=== PATIENT | female | born 1990 | race Caucasian/White ===

== ENCOUNTER 2018-05-09 08:18 | Emergency (ER) | payer BC ==
[~2018-05-09] VITALS: Ht 162.6 cm; Wt 55.3 kg
[~2018-05-09 08:18] MED LIST: BSP10T PO; DAPS25TA2 PO; FAMO20TA5 PO; METO-333 PO; MIRT15TA6 PO; PRD20T PO; PREN-53 PO; SULF1TAB38 PO; SUMA50TA2 PO; TRAM50TA2 PO
--- OUTSIDE RECORDS SUMMARY | 2018-05-09 08:22 | XMS REPORT | Continuity of Care Document ---
Author Author [facility] Organization [facility] Address Unknown Phone Unavailable Care Team Providers Care Electronics Supervisor Name Role Phone NO, LOCAL PHYSICIAN PCP Unavailable Insurance Providers Payer Name Policy Number Subscriber Name Relationship Unknown Advance Directives Directive Response Recorded Date/Time Advance Directives No 11/02/15 4:41pm Resuscitation Status Full Code 11/02/15 4:41pm Chief Complaint and Reason for Visit Chief Complaint Head/Cervical Problems Reason for Visit Migraine Problems Active Problems Medical Problem Onset Date Status Migraine Unknown Acute Medications Current Home Medications Medication Dose Units Route Directions Days/Qty Instructions Start Date [id number]/Iron Fumarate/Fa/Dss 1 Each 1 Each Oral Daily 11/02/15 Sumatriptan Succinate 50 Mg 50 Mg Oral Once as needed for Headache 8 Take 1 tablet at onset of headache. May repeat 1 only after 2 hours if not relieved. 11/02/15 Social History Social History Problem Response Recorded Date/Time Alcohol Use Denies Use 11/02/2015 4:41pm Recreational Drug Use No 11/02/2015 4:41pm Recent Foreign Travel No 11/02/2015 4:20pm Recent Infectious Disease Exposure No 11/02/2015 4:20pm Smoking Status Never a Smoker 11/02/2015 4:41pm Query Response Start Date Stop Date Smoking Status Never a Smoker Hospital Discharge Instructions No hospital discharge instructions. Plan of Care Discharge Date 11/02/15 6:53pm Disposition 01 HOME, SELF-CARE Condition at Discharge Improved Instructions/Education Provided Migraine Headache (ED) Prescriptions See Medication Section Referrals NO,LOCAL PHYSICIAN - Primary Care Physician Additional Instructions/Education All discharge instructions reviewed with patient and/or family. Voiced understanding. It is imperative that you follow-up with her doctor in your hometown for continued care and follow-up. You may benefit from preventative Functional Status Query Response Date Recorded Patient Orientation Person Place Time Situation November 02, 2015 5:20pm Comprehension Ability Understands Concepts November 02, 2015 5:20pm Allergies, Adverse Reactions, Alerts No known allergies. Immunizations No immunization records. Vital Signs Acute Vital Signs Vital Response Date/Time Temperature (Fahrenheit) 98 degrees F (97.6 - 99.5) 11/02/2015 4:20pm Temperature (Calculated Celsius) 36.6696 degrees C (36.4 - 37.5) 11/02/2015 4 :20pm Pulse Rate (adult) 77 bpm (60 - 90) 11/02/2015 4:20pm Respiratory Rate 18 bpm (12 - 24) 11/02/2015 4:20pm O2 Sat by Pulse Oximetry 98 % (88 - 100) 11/02/2015 4:20pm Blood Pressure 128/61 mm Hg 11/02/2015 4:20pm Blood Pressure Mean 83 mm Hg 11/02/2015 4:20pm Pain Pain Intensity 6 11/02/2015 6:21pm Height (Feet) 5 feet 11/02/2015 4:20pm Height (Inches) 4 inches 11/02/2015 4:20pm Height (Calculated Centimeters) 162.549887 cm 11/02/2015 4:20pm Weight (Pounds) 115 pounds 11/02/2015 4:20pm Weight (Calculated Kilograms) 52.059630 kilograms 11/02/2015 4:20pm Height 5 ft 4 in Weight 115 lb Body Mass Index 19.7 kg/m^2 Results Laboratory Results Test Name Result Units Flags Reference Collection Date/Time Result Date/ Time Comments White Blood Count 9.6 10^3/uL 4.3-11.0 11/02/2015 5:15pm 11/02/2015 5: 32pm Red Blood Count 4.50 10^6/uL 4.35-5.85 11/02/2015 5:15pm 11/02/2015 5: 32pm Hemoglobin 13.2 G/DL 11.5-16.0 11/02/2015 5:15pm 11/02/2015 5:32pm Hematocrit 39 % 35-52 11/02/2015 5:1511/02/2015 5:32pm Mean Corpuscular Volume 87 FL 80-99 11/02/2015 5:1511/02/2015 5: 32pm Mean Corpuscular Hemoglobin 29 PG 25-34 11/02/2015 5:1511/02/2015 5: 32pm Mean Corpuscular Hemoglobin Concent 34 G/DL 32-36 11/02/2015 5:1511/2015 5:32pm Red Cell Distribution Width 13.1 % 10.0-14.5 11/02/2015 5:152015 5:32pm Platelet Count 300 10^3/uL 130-400 11/02/2015 5:1511/02/2015 5:32pm Mean Platelet Volume 10.1 FL 7.4-10.4 11/02/2015 5:1511/02/2015 5: 32pm Neutrophils (%) (Auto) 78 % H 42-75 11/02/2015 5:1511/02/2015 5:32pm Lymphocytes (%) (Auto) 13 % 12-44 11/02/2015 5:1511/02/2015 5:32pm Monocytes (%) (Auto) 8 % 0-12 11/02/2015 5:1511/02/2015 5:32pm Eosinophils (%) (Auto) 1 % 0-10 11/02/2015 5:1511/02/2015 5:32pm Basophils (%) (Auto) 0 % 0-10 11/02/2015 5:11/02/2015 5:32pm Neutrophils # (Auto) 7.5 X 10^3 1.8-7.8 11/02/2015 5:1511/02/2015 5: 32pm Lymphocytes # (Auto) 1.3 X 10^3 1.0-4.0 11/02/2015 5:1511/02/2015 5: 32pm Monocytes # (Auto) 0.8 X 10^3 0.0-1.0 11/02/2015 5:1511/02/2015 5: 32pm Eosinophils # (Auto) 0.1 10^3/uL 0.0-0.3 11/02/2015 5:1511/02/2015 5 :32pm Basophils # (Auto) 0.0 10^3/uL 0.0-0.1 11/02/2015 5:15pm 11/02/2015 5: 32pm Sodium Level 137 MMOL/L 135-145 11/02/2015 5:11/02/2015 5:51pm Potassium Level 3.6 MMOL/L 3.6-5.0 11/02/2015 5:15pm 11/02/2015 5:51pm Chloride Level 102 MMOL/L 98-107 11/02/2015 5:1511/02/2015 5:51pm Carbon Dioxide Level 25 MMOL/L 21-32 11/02/2015 5:15pm 11/02/2015 5: 51pm Anion Gap 10 MMOL/L 5-14 11/02/2015 5:11/02/2015 5:51pm Blood Urea Nitrogen 12 MG/DL 7-18 11/02/2015 5:15pm 11/02/2015 5:51pm Creatinine 0.68 MG/DL 0.60-1.30 11/02/2015 5:11/02/2015 5:51pm BUN/Creatinine Ratio 18 11/02/2015 5:15pm 11/02/2015 5:51pm Estimat Glomerular Filtration Rate > 60 11/02/2015 5:2015 5:51pm GFR INTERPRETIVE DATA UNITS FOR ESTIMATED GFR (eGFR): mL/min/1.73 M2 REFERENCE RANGE FOR ESTIMATED GFR (eGFR) eGFR NORMAL eGFR >60 MODERATELY DECREASED eGFR 30-59 SEVERLY DECREASED eGFR 15-29 KIDNEY FAILURE <15 (OR DIALYSIS) Glucose Level 99 MG/DL 70-105 11/02/2015 5:11/02/2015 5:51pm Calcium Level 9.0 MG/DL 8.5-10.1 11/02/2015 5:11/02/2015 5:51pm Total Bilirubin 0.7 MG/DL 0.1-1.0 11/02/2015 5:1511/02/2015 5:51pm Alkaline Phosphatase 51 U/L 40-136 11/02/2015 5:15pm 11/02/2015 5:51pm Aspartate Amino Transf (AST/SGOT) 25 U/L 5-34 11/02/2015 5:2015 5:51pm Alanine Aminotransferase (ALT/SGPT) 26 U/L 0-55 11/02/2015 5:15pm 11/01 5:51pm Total Protein 7.3 G/DL 6.4-8.2 11/02/2015 5:15pm 11/02/2015 5:51pm Albumin 4.5 G/DL 3.2-4.5 11/02/2015 5:15pm 11/02/2015 5:51pm Procedures No known history of procedures. Encounters Encounter Location Arrival/Admit Date Discharge/Depart Date Attending Provider Departed Emergency Room [facility] 11/02/15 3:08pm 11/01 6:53pm DOC BLANKENSHIP MD Recent Diagnosis
--- OUTSIDE RECORDS SUMMARY | 2018-05-09 08:22 | XMS REPORT | Continuity of Care Document ---
Author Author [facility] Organization [facility] Address Unknown Phone Unavailable Allergies Active Description Code Type Severity Reaction Onset Reported/Identified Relationship to Patient Clinical Status Yes No Known Drug Allergies [id number] Drug Allergy Unknown N/A 11/16/2011 Yes No Known Drug Allergies [id number] Drug Allergy Unknown N/A 11/02/2015 Medications There is no data. Problems Date Dx Coded Attending Type Code Diagnosis Diagnosed By 11/02/2015 DOC BLANKENSHIP MD Ot G43.909 MIGRAINE, UNSP, NOT INTRACTABLE, WITHOUT 11/02/2015 Ot G43.909 MIGRAINE, UNSP, NOT INTRACTABLE, WITHOUT 11/04/2015 DOC BLANKENSHIP MD Ot G43.909 MIGRAINE, UNSP, NOT INTRACTABLE, WITHOUT Procedures There is no data. Results There is no data. Encounters ACCT No. Visit Date/Time Discharge Status Pt. Type Provider Facility Loc./Unit Complaint [id number] 11/02/2015 15:08:00 11/02/2015 18:53:00 DIS Emergency DOC BLANKENSHIP MD [facility] ER [id number] 05/09/2018 08:19:00 ACT Emergency BARBARA GARCÍA MD [facility] ER N/V/D,PASSING OUT [id number] 11/02/2015 15:08:00 Document Registration
[2018-05-09] MEDS ORDERED: LACTATED RINGERS 1,000 ML IV ONE ×2 (08:42→08:43)
[2018-05-09 08:43] LABS: BASOPHILS % (AUTO) 0 % (0-10); EOSINOPHILS % (AUTO) 0 % (0-10); HEMATOCRIT 47 % (35-52); HEMOGLOBIN 15.8 G/DL (11.5-16.0); LYMPHOCYTES # (AUTO) 0.3 X 10^3 (1.0-4.0); LYMPHOCYTES % (AUTO) 3 % (12-44); MEAN CORPUSCULAR HEMOGLOBIN 29 PG (25-34); MEAN CORPUSCULAR HGB CONC 33 G/DL (32-36); MEAN CORPUSCULAR VOLUME 88 FL (80-99); MEAN PLATELET VOLUME 9.8 FL (7.4-10.4); MONOCYTES # (AUTO) 0.5 X 10^3 (0.0-1.0); MONOCYTES % (AUTO) 4 % (0-12); NEUTROPHILS # (AUTO) 12.1 X 10^3 (1.8-7.8); NEUTROPHILS % (AUTO) 93 % (42-75); PLATELET COUNT 291 10^3/uL (130-400); RED BLOOD COUNT 5.38 10^6/uL (4.35-5.85); RED CELL DISTRIBUTION WIDTH 13.3 % (10.0-14.5); WHITE BLOOD COUNT 12.9 10^3/uL (4.3-11.0)
--- NOTE | 2018-05-09 08:43 | ED GI ---
General Stated Complaint: N/V/D,PASSING OUT Source of Information: Patient, Family ([id number]) Exam Limitations: No Limitations History of Present Illness Date Seen by Provider: May 09, 2018 Time Seen by Provider: 08:31 Initial Comments Patient presents to ER by private conveyance from home with chief complaint that for the past 1 day she's been having nausea vomiting diarrhea. Her had similar symptoms a day before her period she's had a low-grade temperature of 99.9. She's not had anything for the diarrhea or the nausea. She said she thinks she passed out while she was on the toilet and vomiting at same time and pitched forward. Her poxoar-rb-kki reports that her caught her and put her over on her side because she was vomiting. She's having no cough or shortness of breath or wheezing. They are concerned because she passed out. 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 She is known to a primary care doctor and neurologist in [place], [place]. She also has a neurosurgeon in [place] who is working her up for potential surgical intervention. She has a history of hypothyroidism and scoliosis that has been corrected surgically. She says she also gets positional headaches and is better when she lays flat. She has not taken anything for the pain. Allergies and Home Medications Allergies Coded Allergies: No Known Drug Allergies (Unverified , 11/16/11) Home Medications Dapsone 25 Mg Tablet, 2 EACH PO BID Prescribed by: BEATRIS DUARTE on 09/26/12 151 Famotidine 20 Mg Tablet, 1 EACH PO BID PRN Prescribed by: BEATRIS DUARTE on 09/26/12 154 Ehb284/Iron Fumarate/FA/Dss 1 Each Tablet, 1 EACH PO DAILY, (Reported) Prednisone 20 Mg Tab, 40 MG PO DAILY Prescribed by: BEATRIS DUARTE on 09/26/12 1549 Sumatriptan Succinate 50 Mg Tablet, 50 MG PO ONCE PRN for HEADACHE Take 1 tablet at onset of headache. May repeat 1 only after 2 hours if not relieved. Prescribed by: DOC BLANKENSHIP on 11/02/15 1850 Trimethoprim/Sulfamethoxazole 1 Ea Tablet, 1 EA PO BID Prescribed by: BEATRIS DUARTE on 09/26/12 1512 Patient Home Medication List Home Medication List Reviewed: Yes Review of Systems Review of Systems Constitutional: chills, fever EENTM: No Blurred Vision, No Double Vision Respiratory: Denies Cough, Denies Shortness of Air Cardiovascular: Denies Chest Pain, Denies Lightheadedness Gastrointestinal: See HPI; Denies Abdomen Distended, Denies Abdominal Pain, Denies Constipated; Diarrhea, Nausea, Poor Fluid Intake, Vomiting Genitourinary: Denies Burning, Denies Discharge Musculoskeletal: No back pain, No joint pain Skin: No pruritus, No rash Psychiatric/Neurological: Headache; Denies Numbness, Denies Paresthesia, Denies Seizure Past Zoimygf-Kjfsea-Hklbyl Hx Patient Social History Alcohol Use: Denies Use Recreational Drug Use: No Smoking Status: Never a Smoker Recent Foreign Travel: No Contact w/Someone Who Travel: No Immunizations Up To Date Tetanus Booster (TDap): Less than 5yrs Past Medical History Reproductive Disorders: No Sexually Transmitted Disease: No HIV/AIDS: No Family Medical History No Pertinent Family Hx Physical Exam Vital Signs Vital Signs - First Documented 05/09/18 08:54 Temp 98.3 Pulse 99 Resp 20 B/P (MAP) 101/52 (68) Pulse Ox 99 Capillary Refill : Height/Weight/BMI Height: '" Weight: lbs. oz. kg; BMI Method:Stated General Appearance: WD/WN, no apparent distress HEENT: PERRL/EOMI, normal ENT inspection, TMs normal, pharynx normal, other ( atraumatic head without Garcia sign, raccoon eyes or hemotympanum.) Neck: non-tender, full range of motion, supple, normal inspection Respiratory: chest non-tender, lungs clear, normal breath sounds, no respiratory distress, no accessory muscle use Cardiovascular: normal peripheral pulses, regular rate, rhythm, no edema Peripheral Pulses: 2+ Radial Pulses (R), 2+ Radial Pulses (L) Gastrointestinal: normal bowel sounds, non tender, soft, no organomegaly Extremities: normal range of motion, non-tender, normal capillary refill Neurologic/Psychiatric: alert, normal mood/affect, oriented x 3 Skin: normal color, warm/dry Progress/Results/Core Measures Results/Orders Lab Results Laboratory Tests Test 05/09/18 08:33 05/09/18 08:35 05/09/18 10:11 Range/Units White Blood Count 12.9 H 4.3-11.0 10^3/uL Red Blood Count 5.38 4.35-5.85 10^6/uL Hemoglobin 15.8 11.5-16.0 G/DL Hematocrit 47 35-52 % Mean Corpuscular Volume 88 80-99 FL Mean Corpuscular Hemoglobin 29 25-34 PG Mean Corpuscular Hemoglobin Concent 33 32-36 G/DL Red Cell Distribution Width 13.3 10.0-14.5 % Platelet Count 291 130-400 10^3/uL Mean Platelet Volume 9.8 7.4-10.4 FL Neutrophils (%) (Auto) 93 H 42-75 % Lymphocytes (%) (Auto) 3 L 12-44 % Monocytes (%) (Auto) 4 0-12 % Eosinophils (%) (Auto) 0 0-10 % Basophils (%) (Auto) 0 0-10 % Neutrophils # (Auto) 12.1 H 1.8-7.8 X 10^3 Lymphocytes # (Auto) 0.3 L 1.0-4.0 X 10^3 Monocytes # (Auto) 0.5 0.0-1.0 X 10^3 Eosinophils # (Auto) 0.0 0.0-0.3 10^3/uL Basophils # (Auto) 0.0 0.0-0.1 10^3/uL Neutrophils % (Manual) 84 % Lymphocytes % (Manual) 2 % Monocytes % (Manual) 2 % Band Neutrophils 12 % Blood Morphology Comment NORMAL Sodium Level 139 135-145 MMOL/L Potassium Level 4.0 3.6-5.0 MMOL/L Chloride Level 105 98-107 MMOL/L Carbon Dioxide Level 18 L 21-32 MMOL/L Anion Gap 16 H 5-14 MMOL/L Blood Urea Nitrogen 16 7-18 MG/DL Creatinine 0.85 0.60-1.30 MG/DL Estimat Glomerular Filtration Rate > 60 BUN/Creatinine Ratio 19 Glucose Level 134 H 70-105 MG/DL Calcium Level 10.1 8.5-10.1 MG/DL Corrected Calcium 8.5-10.1 MG/DL Magnesium Level 2.0 1.8-2.4 MG/DL Total Bilirubin 0.9 0.1-1.0 MG/DL Aspartate Amino Transf (AST/SGOT) 15 5-34 U/L Alanine Aminotransferase (ALT/SGPT) 11 0-55 U/L Alkaline Phosphatase 58 40-136 U/L Total Protein 8.9 H 6.4-8.2 GM/DL Albumin 5.0 H 3.2-4.5 GM/DL Lipase 14 8-78 U/L Serum Test, Qualitative NEGATIVE NEGATIVE Urine Color YELLOW Urine Clarity CLEAR Urine pH 6 5-9 Urine Specific [place] 1.020 1.016-1.022 Urine Protein 1+ H NEGATIVE Urine Glucose (UA) NEGATIVE NEGATIVE Urine Ketones 1+ H NEGATIVE Urine Nitrite NEGATIVE NEGATIVE Urine Bilirubin NEGATIVE NEGATIVE Urine Urobilinogen NORMAL NORMAL MG/DL Urine Leukocyte Esterase 3+ H NEGATIVE Urine RBC (Auto) NEGATIVE NEGATIVE Urine RBC NONE /HPF Urine WBC 10-25 H /HPF Urine Squamous Epithelial Cells 20-30 /HPF Urine Crystals NONE /LPF Urine Bacteria MODERATE H /HPF Urine Casts NONE /LPF Urine Mucus NEGATIVE /LPF Urine Culture Indicated YES My Orders Orders - BARBARA GARCÍA Ua Culture If Indicated (05/09/18 08:24) Ondansetron Injection (Zofran Injectio (05/09/18 08:45) Cbc With Automated Diff (05/09/18 08:35) Comprehensive Metabolic Panel (05/09/18 08:35) Hcg,Qualitative Serum (05/09/18 08:35) Lipase (05/09/18 08:35) Magnesium (05/09/18 08:35) Saline Lock/Iv-Start (05/09/18 08:43) Lactated Ringers (Lr 1000 Ml Iv Solution (05/09/18 08:43) Lactated Ringers (Lr 1000 Ml Iv Solution (05/09/18 08:42) Manual Differential (05/09/18 08:33) Ketorolac Injection (Toradol Injection) (05/09/18 09:00) Urine Culture (05/09/18 10:11) Medications Given in ED Current Medications Medications Dose Ordered Sig/Cristo Route Start Time Stop Time Status Last Admin Dose Admin Ketorolac Tromethamine 30 mg ONCE ONCE IVP 05/09/18 09:00 05/09/18 09:01 DC 05/09/18 09:25 30 MG Lactated Ringer's 1,000 ml @ 0 mls/hr Q0M ONCE IV 05/09/18 08:43 05/09/18 08:44 DC 05/09/18 08:45 0 MLS/HR Ondansetron HCl 4 mg ONCE ONCE IVP 05/09/18 08:45 05/09/18 08:46 DC 05/09/18 08:45 4 MG Vital Signs/I&O 05/09/18 08:54 Temp 98.3 Pulse 99 Resp 20 B/P (MAP) 101/52 (68) Pulse Ox 99 Progress Progress Note #1: Time: 08:44 Progress Note The patient laid herself down in the lobby on the floor. She states she did this because laying flat is better for her headache because of her access CSF production. We will give her some Toradol for her headache, a liter of fluids to start and some Zofran for her nausea. We'll check some labs to look at her electrolytes, kidney function, fluid base status as well as urine. We have offered to do a CT scan versus observation and she says that her head is fine and we agree that it would be reasonable to just let her family observe her for the next 12 hours. Sounds like she is having a bad case of probably viral gastroenteritis with possible dehydration or fluid electrolyte derangement. She says she does not have a history of syncopal episodes. Progress Note #2: Time: 11:30 Progress Note Patient's feeling much better. Her going to go ahead and put her on Keflex to treat a potential UTI and give her Zofran. Departure Impression Primary Impression: Urinary tract infection Qualified Codes: N30.00 - Acute cystitis without hematuria Additional Impressions: Gastroenteritis and colitis, viral Mild dehydration Disposition: 01 HOME, SELF-CARE Condition: Improved Departure-Patient Inst. Decision time for Depature: 11:31 Referrals: NO,LOCAL PHYSICIAN (PCP/Family) Primary Care Physician Patient Instructions: Urinary Tract Infection, Adult (DC) Add. Discharge Instructions: Start with some clear liquid diet and work your way up as you tolerated. If you have nausea take one tablet of Zofran every 6 hours as needed. Starting the Keflex one capsule twice a day with some food. If you have other or new or worrisome symptoms he should follow-up with your primary care doctor or you may return to the ER as needed. Scripts Cephalexin (Cephalexin) 500 Mg Tablet 500 MG PO BID, #14 TAB 0 Refills Prov: BARBARA GARCÍA 05/09/18 Work/School Note: Work Release Form Date Seen in the Emergency Department: May 09, 2018 Return to Work: May 12, 2018 Restrictions: No Restrictions BARBARA GARCÍA May 09, 2018 08:42
[2018-05-09] MEDS ORDERED: ONDANSETRON 4 MG/2 ML (SDV) Z0FRAN IVP ONE (08:45)
[2018-05-09 09:00] LABS: ALANINE AMINOTRANSFERASE 11 U/L (0-55); ALKALINE PHOSPHATASE 58 U/L (40-136); BILIRUBIN,TOTAL 0.9 MG/DL (0.1-1.0); BUN/CREATININE RATIO 19; CALCIUM 10.1 MG/DL (8.5-10.1); CARBON DIOXIDE 18 MMOL/L (21-32); CHLORIDE 105 MMOL/L (98-107); CREATININE SERUM 0.85 MG/DL (0.60-1.30); GFR ESTIMATED > 60; GLUCOSE 134 MG/DL (70-105); LIPASE 14 U/L (8-78); SODIUM 139 MMOL/L (135-145); TOTAL PROTEIN 8.9 GM/DL (6.4-8.2)
[2018-05-09] MEDS ORDERED: KETOROLAC 30 MG/ML VIAL IVP ONE (09:00)
[2018-05-09 09:45] LABS: BILIRUBIN,URINE NEGATIVE (NEGATIVE); CLARITY,URINE CLEAR; COLOR,URINE YELLOW; GLUCOSE, URINE (UA) NEGATIVE (NEGATIVE); NITRITE,URINE NEGATIVE (NEGATIVE); PH,URINE 6 (5-9); PROTEIN,URINE 1+ (NEGATIVE); UROBILINOGEN,URINE NORMAL (NORMAL)
[2018-05-09 10:18] LABS: KETONES,URINE 1+ (NEGATIVE); LEUKOCYTE ESTERASE ,URINE 3+ (NEGATIVE)
[2018-05-09 10:23] LABS: BAND NEUTROPHILS 12 %; LYMPHOCYTES % (MANUAL) 2 %; MONOCYTES % (MANUAL) 2 %; NEUTROPHILS % (MANUAL) 84 %; RBC MORPH NORMAL
[2018-05-09 10:44] LABS: BACTERIA,URINE MODERATE /HPF; SQUAMOUS EPITHELIAL CELL,UR 20-30 /HPF
[2018-05-09] MEDS ORDERED: CEPH500T PO (11:34)
[2018-05-09] MEDS ORDERED: ONDA4TAB11 PO (11:36)
[2018-05-09 11:47] VITALS: BP 102/61
== END 2018-05-09 11:47 | disposition home or self-care (01) ==
LOC: EDUNIT# 08:18 → ER 08:19
DX: N39.0 Urinary tract infection, site not specified (principal); A08.4 Viral intestinal infection, unspecified; E86.0 Dehydration; K21.9 Gastro-esophageal reflux disease without esophagitis; E03.9 Hypothyroidism, unspecified; Z79.52 Long term (current) use of systemic steroids
CPT/HCPCS: 36415; 80053; 81000; 83690; 83735; 84703; 85007; 85027; 87088

== ENCOUNTER 2019-01-01 10:47 | Outpatient (CLI) | payer BC ==
[~2019-01-01 10:47] MED LIST changes: +CEPH500T PO; +ONDA4TAB11 PO
--- NOTE | 2019-01-01 10:56 | NUR ---
RENY TARANGO presented to unit via ambulatory from ED, accompanied by , with c/o NOT MUCH MOVEMENT. RENY TARANGO weighed, gowned, voided, and to bed. EFHM and TOCO applied, VS taken. RENY TARANGO oriented to bed controls, call light, TV, heat, and A/C controls.
--- NOTE | 2019-01-01 11:13 | NUR ---
Dr Ivory called in to unit to inquire on another pt and I informed him of this G 4 P 1 at 28 wks with complaints of decreased movement. Pt is visiting family but lives in [place] and sees Dr Ramon there for care. Will plan to do NST and discharge if reactive NST. 1210 Pt has an appointment with her OB on 01/03. Labor precautions given. To exit accompanied by and son.
[2019-01-01] MEDS ORDERED: Flexeril (11:47)
[2019-01-01] MEDS ORDERED: LEVO50TA PO (11:49)
[2019-01-01] MEDS ORDERED: CHOL200014 PO (11:53)
[2019-01-01 12:00] VITALS: BP 125/82
--- NOTE | 2019-01-14 15:14 | Physician Query-Final Dx ---
BONI JIN 01/14/19 1514: Clinic Account Progress/Dx Physician Query: Please give diagnosis Need dx and weeks of gestation Date of Service Jan 01, 2019 at 10:47 KAYLEE FERNANDEZ DO 01/17/19 0714: Clinic Account Progress/Dx DIAGNOSIS: Diagnosis 28 week IUP Decreased movement BONI JIN Jan 14, 2019 15:14 KAYLEE FERNANDEZ DO Jan 17, 2019 07:14
== END 2019-01-01 12:15 ==
LOC: LDRP 10:47 → WSo 10:47
PROVIDERS: ATTEND Obstetrics & Gynecology
DX: O36.8130 Decreased fetal movements, third trimester, not applicable or unspecified (principal); Z3A.38 38 weeks gestation of pregnancy
CPT/HCPCS: 59025